=== PATIENT | female | born 1945 | race Native Hawaiian/Other Pacific Islander ===

== ENCOUNTER 2019-03-19 10:13 | Outpatient (CLI) | payer OTHER | END 2019-03-19 23:29 | disposition home or self-care (01) | LOC: MRI 10:13 | DX: M54.16 Radiculopathy, lumbar region (principal) ==

== ENCOUNTER 2020-05-10 14:36 | Outpatient (CLI) | payer OTHER | END 2020-05-10 21:47 | disposition home or self-care (01) | LOC: RAD 14:36 | PROVIDERS: ATTEND Physician Assistant | DX: M53.3 Sacrococcygeal disorders, not elsewhere classified (principal) ==

== ENCOUNTER 2021-03-18 09:34 | Outpatient (CLI) | payer OTHER | END 2021-03-18 19:22 | disposition home or self-care (01) | LOC: RAD 09:34 | PROVIDERS: ATTEND Physician Assistant | DX: M54.2 Cervicalgia (principal) ==

== ENCOUNTER 2022-03-02 10:29 | Outpatient (CLI) | payer OTHER | END 2022-03-02 19:10 | disposition home or self-care (01) | LOC: RAD 10:29 | PROVIDERS: ATTEND Physician Assistant | DX: M79.645 Pain in left finger(s) (principal) ==